=== PATIENT | male | born 1955 | race Caucasian/White ===

== ENCOUNTER 2018-06-15 15:42 | Emergency (ER) | payer OTHER ==
[2018-06-15] MEDS: CEFAZOLIN 1 GM/50 ML (PMX) 50 ML IVPB (16:32)
[2018-06-15] MEDS: LIDOCAINE 1% (MDV) 50 ML INJ INJ (16:37)
[2018-06-15] MEDS: LIDOCAINE 1% (MDV) 10 ML INJ INJ (16:37)
[2018-06-15] MEDS: DIPHTH/TET/ACEL PERTUSS (ADULT) 0.5 ML VIAL IM* (16:37)
== END 2018-06-15 17:32 | disposition home or self-care (01) ==
LOC: E/R 15:42
DX: S61.217A Laceration without foreign body of left little finger without damage to nail, initial encounter (principal); E11.9 Type 2 diabetes mellitus without complications; I10 Essential (primary) hypertension; F17.210 Nicotine dependence, cigarettes, uncomplicated; W23.0XXA Caught, crushed, jammed, or pinched between moving objects, initial encounter; Y92.9 Unspecified place or not applicable; Z23 Encounter for immunization; Z98.61 Coronary angioplasty status
CPT/HCPCS: 12001; 90471; 90715; 96374; 99284-25